=== PATIENT | female | born 1995 | race American Indian/Alaskan Native ===

== ENCOUNTER 2017-06-22 21:17 | Emergency (ER) | payer SELFPAY ==
[2017-06-22 21:30] VITALS: BP 122/71
[2017-06-22] MEDS ORDERED: NACL 0.9% 1000 ML 1,000 ML IV ONE (21:30)
[2017-06-22] MEDS ORDERED: PEPCID IV ONE (21:32)
--- NOTE | 2017-06-22 21:38 | Emergency Department Report ---
HPI - General Chief Complaint: Allergic Reaction Time Seen by Provider: 06/22/17 21:38 - HPI HPI: 21-year-old -Spanish female with history of peanut allergy, presented to ED after having an anaphylactic reaction to peanut that she obtained from a gravy sauce. She was given 0.3 of epinephrine and 50 of Benadryl in route, feels much better upon arrival in ED. Patient denies any chest pain, shortness of breath, wheezing. Rash also improved after medications were given. ED Past Medical Hx - Past Medical History Previous Medical History?: Yes Hx Hypertension: No Hx CVA: No Additional medical history: bacterial vag. - Surgical History Past Surgical History?: No - Social History Smoking Status: Never Smoker Substance Use Type: None - Medications Home Medications: Home Medications Medication Instructions Recorded Confirmed Last Taken Type EPINEPHrine [Epipen] 0.3 mg IJ PRN PRN #1 auto.injct 06/22/17 Unknown Rx Hydroxyzine HCl 25 mg PO 4XD PRN #30 tablet 06/22/17 Unknown Rx methylPREDNISolone [Medrol] 4 mg PO QAM #1 tab.ds.pk 06/22/17 Unknown Rx ED Review of Systems ROS: Stated complaint: ALLERGIC REACTION Other details as noted in HPI Comment: All other systems reviewed and negative Cardiovascular: denies: chest pain, palpitations, dyspnea on exertion Skin: rash, lesions Physical Exam - Physical Exam Vital Signs: Vital Signs 06/22/17 21:24 Temperature 98.0 F Pulse Rate 120 H Respiratory 22 Rate Blood Pressure 122/71 O2 Sat by Pulse 100 Oximetry Physical Exam: - Physical Exam Physical Exam: - General Limitations: No Limitations General appearance: alert, in no apparent distress. - Head Head exam: Present: atraumatic, normocephalic - Eye Eye exam: Present: normal appearance - ENT ENT exam: Present: mucous membranes moist - Neck Neck exam: Present: normal inspection - Respiratory Respiratory exam: Present: normal lung sounds bilaterally. Absent: respiratory distress - Cardiovascular Cardiovascular Exam: Present: normal rhythm, tachycardia. Absent: systolic murmur, diastolic murmur, rubs, gallop - GI/Abdominal GI/Abdominal exam: Present: soft, normal bowel sounds - Extremities Exam Extremities exam: Present: normal inspection - Back Exam Back exam: Present: normal inspection - Neurological Exam Neurological exam: Present: alert, oriented X3 - Psychiatric Psychiatric exam: normal affect and mood - Skin Skin exam: Present: warm, dry, intact, normal color, mild urticaria ED Course Vital Signs 06/22/17 21:24 Temperature 98.0 F Pulse Rate 120 H Respiratory 22 Rate Blood Pressure 122/71 O2 Sat by Pulse 100 Oximetry - Reevaluation(s) Reevaluation #1: 06/22/17 22:56 Patient feel much better, wants to go home, itching has ceased, no shortness of breath, no chest pain, no sore throat. Critical care attestation.: If time is entered above; I have spent that time in minutes in the direct care of this critically ill patient, excluding procedure time. ED Disposition Clinical Impression: Anaphylactic reaction Qualifiers: Encounter type: initial encounter Qualified Code(s): T78.2XXA - Anaphylactic shock, unspecified, initial encounter Disposition: TO HOME OR SELFCARE Is pt being admited?: No Does the pt Need Aspirin: No Condition: Stable Prescriptions: EPINEPHrine [Epipen] 0.3 mg IJ PRN PRN #1 auto.injct PRN Reason: Anaphylaxis Hydroxyzine HCl 25 mg PO 4XD PRN #30 tablet PRN Reason: Itching methylPREDNISolone [Medrol] 4 mg PO QAM #1 tab.ds.pk Referrals: SCHUYLER STARK MD [Primary Care Provider] - 3-5 Days
== END 2017-06-22 23:22 | disposition home or self-care (01) ==
LOC: ED 21:17
DX: T78.01XA Anaphylactic reaction due to peanuts, initial encounter (principal)
CPT/HCPCS: 96361; 96374; 96375; 99284; J2930; J7030